=== PATIENT | female | born 1960 | race Two or more races ===

== ENCOUNTER 2019-12-12 22:40 | Emergency (ER) | payer OTHER ==
[~2019-12-12] VITALS: Ht 160 cm; Wt 64.8 kg
[~2019-12-12 22:40] MED LIST: HTN MED; LEVO50TA13 PO
[2019-12-12] MEDS ORDERED: LABETALOL HCL 5 MG/ML 20 ML VIAL IVP ONE (23:00)
[2019-12-12] MEDS ORDERED: SODIUM CHLORIDE 0.9% 1,000 ML IV ONE (23:00)
[2019-12-12] MEDS ORDERED: IOVERSOL 350 MG/ML 100 ML VIAL ONE (23:15)
[2019-12-12] MEDS ORDERED: SODIUM CHLORIDE 0.9% 100 ML ONE (23:15)
[2019-12-12 23:37] LABS: BASOPHILS % (AUTO) 1.5 % (0.0-2.0); EOSINOPHILS % (AUTO) 5.4 % (1.0-6.0); HEMATOCRIT 42.5 % (36-46); LYMPHOCYTES # (AUTO) 3.5 K/uL (1.0-4.8); LYMPHOCYTES % (AUTO) 43.9 % (22.0-44.0); MEAN CORPUSCULAR HEMOGLOBIN 30.8 pg (26.0-34.0); MEAN CORPUSCULAR HGB CONC 32.8 G/dL (31.0-37.0); MEAN CORPUSCULAR VOLUME 94 fL (80-100); MONOCYTES # (AUTO) 0.4 K/uL (0.1-1.0); MONOCYTES % (AUTO) 4.8 % (2.0-9.0); NEUTROPHILS # (AUTO) 3.5 K/uL (1.8-7.7); NEUTROPHILS % (AUTO) 44.4 % (40.0-70.0); PLATELET COUNT (AUTO) 331 K/uL (150-450); RED BLOOD CELL COUNT(AUTO) 4.53 MIL/uL (4.00-5.20); RED CELL DISTRIBUTION WIDTH 15.2 % (11.5-14.5)
[2019-12-12] MEDS ORDERED: ATEN-73 PO (23:48)
[2019-12-12] MEDS ORDERED: LAMO100 PO (23:48)
[2019-12-12] MEDS ORDERED: LEVO50 PO (23:48)
[2019-12-12] MEDS ORDERED: ZIPR80CA2 PO (23:48)
[2019-12-12] MEDS ORDERED: HYDR-4119 PO (23:48)
[2019-12-12] MEDS ORDERED: TRAZ-252 PO (23:48)
[2019-12-12] MEDS ORDERED: IBUP-2070 PO (23:48)
[2019-12-12] MEDS ORDERED: LISI-662 PO (23:48)
[2019-12-12] MEDS ORDERED: DOCU-275 PO (23:48)
[2019-12-12] MEDS ORDERED: ALEN70TA65 PO (23:48)
[2019-12-12] MEDS ORDERED: ATOR40TA28 PO (23:48)
[2019-12-12] MEDS ORDERED: HYDR-1475 PO (23:48)
[2019-12-12] MEDS ORDERED: CITA-144 PO (23:48)
[2019-12-12] MEDS ORDERED: ONDA-104 PO (23:48)
[2019-12-12] MEDS ORDERED: HYD25 PO (23:48)
[2019-12-12] MEDS ORDERED: OXYC5 PO (23:48)
[2019-12-12 23:51] LABS: ANION GAP 15 mmol/L (8-16); CALCIUM, TOTAL 9.5 mg/dL (8.8-10.5); CARBON DIOXIDE 26 mmol/L (22-29); CHLORIDE 102 mmol/L (98-107); CREATININE 0.83 mg/dL (0.60-1.30); GLOMERULAR FILTR. RATE CALC > 60 mL/min (>60); GLUCOSE,RANDOM 125 mg/dL (70-110); SODIUM SERUM 143 mmol/L (136-145); UREA NITROGEN, BLOOD 11 mg/dL (7-18)
[2019-12-13] MEDS ORDERED: ASPIRIN 300 MG RECTAL SUPPOSITORY PR ONE (00:15)
[2019-12-13 00:17] LABS: ALANINE AMINOTRANSFERASE 27 U/L (12-78); ALBUMIN 4.3 g/dL (3.4-5.0); ALKALINE PHOSPHATASE 84 U/L (46-116); ASPARTATE AMINOTRANSFERASE 22 U/L (15-37); BILIRUBIN,TOTAL 0.2 mg/dL (0.1-1.0); CREATINE KINASE, TOTAL ONLY 167 U/L (26-192); TOTAL PROTEIN, SERUM 8.2 g/dL (6.4-8.2)
[2019-12-13 00:21] LABS: ACETAMINOPHEN < 2 mcg/mL (10-30)
[2019-12-13 00:22] LABS: INFLUENZA TYPE A NEGATIVE FOR TYPE A (NEGATIVE); INFLUENZA TYPE B NEGATIVE FOR TYPE B (NEGATIVE)
[2019-12-13 00:27] LABS: LACTIC ACID 4.9 mmol/L (0.4-2.0); SALICYLATE < 2.8 mg/dL (2.8-20.0)
[2019-12-13] MEDS ORDERED: ALTEPLASE PER STROKE PROTOCOL CLINICAL ONE (00:30)
[2019-12-13] MEDS ORDERED: WATER FOR INJECTION STERILE IV ONE ×2 (00:45)
[2019-12-13] MEDS ORDERED: ALTEPLASE IV ONE ×2 (00:45)
[2019-12-13 00:52] LABS: B-TYPE NATRIURETIC PEPTIDE 73 pg/mL (0-100)
[2019-12-13 01:00] LABS: APPEARANCE,URINE CLEAR (CLEAR); BILIRUBIN,URINE NEGATIVE (NEGATIVE); GLUCOSE, URINE (UA) NEGATIVE (NEGATIVE); KETONES,URINE NEGATIVE (NEGATIVE); LEUKOCYTE ESTERASE ,URINE NEGATIVE (NEGATIVE); NITRATE,URINE NEGATIVE (NEGATIVE); OCCULT BLOOD,URINE NEGATIVE (NEGATIVE); PROTEIN,URINE NEGATIVE (NEGATIVE); UROBILINOGEN,URINE 0.2 mg/dL (<=1.0)
[2019-12-13 01:06] LABS: AMPHET/METH SCREEN,URINE NEGATIVE (NEGATIVE); BARBITURATE SCREEN, URINE NEGATIVE (NEGATIVE); BENZODIAZEPINES SCREEN,URINE NEGATIVE (NEGATIVE); CANNABINOID SCREEN,URINE NEGATIVE (NEGATIVE); COCAINE SCREEN,URINE NEGATIVE (NEGATIVE); METHADONE SCREEN, URINE NEGATIVE (NEGATIVE); OPIATE SCREEN,URINE NEGATIVE (NEGATIVE)
[2019-12-13 01:09] LABS: PHENCYCLIDINE SCREEN,URINE NEGATIVE (NEGATIVE)
[2019-12-13 01:13] LABS: BACTERIA,URINE None Seen /HPF (None Seen); RBC,URINE None Seen /HPF (0-2); SQUAMOUS EPITHELIAL CELL,UR Rare /LPF (None Seen); WBC,URINE None Seen /HPF (0-5); YEAST,URINE None Seen /HPF (None Seen)
[2019-12-13] MEDS ORDERED: ONDANSETRON HCL 4 MG/2 ML VIAL IVP PRN (01:45)
[2019-12-13] MEDS ORDERED: 0.9% SODIUM CHLORIDE 10 ML SYRINGE IVP PRN (01:45)
[2019-12-13] MEDS ORDERED: ACETAMINOPHEN 325 MG TABLET PO PRN (01:45)
[2019-12-13 02:10] VITALS: BP 104/56
[2019-12-13] MEDS ORDERED: SODIUM CHLORIDE 0.9% 1,000 ML IV ONE (02:30)
[2019-12-13] MEDS ORDERED: AZITHROMYCIN 500 MG/NS 250 ML IV ONE (02:30)
== END 2019-12-13 02:30 | disposition short-term general hospital (02) ==
LOC: EMS 22:40
DX: F10.129 Alcohol abuse with intoxication, unspecified (principal); R09.02 Hypoxemia; Z20.828 Contact with and (suspected) exposure to other viral communicable diseases; Z79.899 Other long term (current) drug therapy; Y90.8 Blood alcohol level of 240 mg/100 ml or more
CPT/HCPCS: 36415; 70450; 70496; 71045; 71250; 80053; 80175; 80307; 81001; 82550; 82962; 83605; 83735; 83880; 84484; 85025; 87040; 87804; 93005; 96360; 96361; 99285; G0481; J2997; J7030; J7050; Q9967; U0003; 82948; G0480; J3490